=== PATIENT | female | born 1950 | race Caucasian/White ===

== ENCOUNTER 2019-12-10 15:16 | Observation (INO) ==
[2019-12-10] MEDS ORDERED: Nitroglycerin 0.4 MG TAB.SUBL SL PRN (15:45)
[2019-12-10] MEDS ORDERED: Aspirin 81 MG TAB.CHEW PO ONE (15:45)
[2019-12-10 15:55] LABS: Basophils % 0.5 %; Eosinophils # 0.1 K/mcL (0.0-0.6); Eosinophils % 1.5 %; Hemoglobin 13.1 g/dL (11.5-15.4); Immature Granulocytes % 0.2 % (0-4); Lymphocytes # 2.5 K/mcL (0.6-4.6); Lymphocytes % 41.5 %; Mean Corpuscular Hemoglobin 27.4 pg (28.0-33.3); Mean Corpuscular Volume 85.8 fL (83.0-100.0); Mean Platelet Volume 10.1 fL (9.4-12.4); Monocytes # 0.8 K/mcL (0.0-1.3); Monocytes % 12.8 %; Neutrophils # 2.6 K/mcL (1.6-8.9); Platelet Count 275 K/mcL (140-400); Red Blood Count 4.78 M/mcL (3.82-4.97); Red Cell Distribution Width 15.9 % (11.5-14.5); Segmented Neutrophils % 43.5 %
[2019-12-10 16:01] LABS: Prothrombin Time 11.8 Seconds (9.4-12.1)
[2019-12-10 16:04] LABS: Activated Partial Thrombo Time 32.5 Seconds (26.0-36.0)
[2019-12-10 16:16] LABS: BUN/Creatinine Ratio 18 (6-26); Blood Urea Nitrogen 31 mg/dL (8-23); Calcium 9.9 mg/dL (8.6-10.3); Carbon Dioxide 28 mEq/L (23-29); Chloride 104 mEq/L (98-107); Glucose 118 mg/dL (70-105); Osmolality,Calculated 298 (280-300); Potassium 3.9 mEq/L (3.5-5.1); Sodium 140 mEq/L (136-145); Troponin I < 0.03 ng/mL (< 0.04); eGFR For African Americans 35 (> 60); eGFR For Non-African Americans 29 (> 60)
[2019-12-10] MEDS ORDERED: 0.9 % Sodium Chloride 1,000 ML IVC ONE (17:17)
[2019-12-10] MEDS ORDERED: Naloxone 0.4 MG/ML INJ IVP PRN (18:03)
[2019-12-10] MEDS ORDERED: Perflutren Lipid Microsphere 1.3 ML in 0.9 % Sodium Chloride 8.7 ML IVP PRN (18:16)
[2019-12-10] MEDS ORDERED: Acetaminophen 325 MG TABLET PO PRN (18:16)
[2019-12-10] MEDS ORDERED: 0.9 % Sodium Chloride 1,000 ML IVC SCH (18:30)
[2019-12-10] MEDS: Amoxicillin/Clavulanate 500 MG TABLET PO SCH (19:49)
[2019-12-11 03:22] LABS: Basophils % 0.5 %; Eosinophils # 0.2 K/mcL (0.0-0.6); Hematocrit 40.1 % (35.3-44.9); Hemoglobin 12.5 g/dL (11.5-15.4); Immature Granulocytes % 0.4 % (0-4); Lymphocytes # 2.9 K/mcL (0.6-4.6); Lymphocytes % 39.4 %; Mean Corpuscular HGB Conc 31.2 g/dL (31.6-35.5); Mean Corpuscular Hemoglobin 26.2 pg (28.0-33.3); Mean Corpuscular Volume 84.1 fL (83.0-100.0); Mean Platelet Volume 10.1 fL (9.4-12.4); Monocytes # 0.9 K/mcL (0.0-1.3); Monocytes % 12.5 %; Neutrophils # 3.4 K/mcL (1.6-8.9); Platelet Count 242 K/mcL (140-400); Red Blood Count 4.77 M/mcL (3.82-4.97); Red Cell Distribution Width 15.6 % (11.5-14.5); Segmented Neutrophils % 45.2 %; White Blood Count 7.4 K/mcL (4.3-11.1)
[2019-12-11 03:40] LABS: Calcium 9.2 mg/dL (8.6-10.3); Chol/HDL Ratio 3.5 (0-4.9)
[2019-12-11] MEDS ORDERED: Regadenoson 0.4 MG/5 ML SYRINGE IVP ONE (05:55)
[2019-12-11] MEDS ORDERED: Aspirin Enteric Coated 81 MG Tablet PO SCH ×2 (09:00→22:00)
[2019-12-11] MEDS ORDERED: rOPINIRole 0.25 MG TABLET PO PRN (09:31)
[2019-12-11] MEDS ORDERED: *HR* OxyCODONE/APAP 5/325 TABLET PO PRN (09:31)
[2019-12-11] MEDS ORDERED: Gabapentin 300 MG CAPSULE PO SCH (11:00)
[2019-12-11] MEDS ORDERED: amLODIPine 5 MG TABLET PO SCH (11:15)
[2019-12-11] MEDS ORDERED: carvediloL 6.25 MG TABLET PO SCH (11:15)
[2019-12-11] MEDS ORDERED: Furosemide 20 MG TABLET PO SCH (11:15)
[2019-12-11 11:18] VITALS: BP 167/74
[2019-12-11] MEDS: Amoxicillin/Clavulanate 500 MG TABLET PO SCH (12:05)
[2019-12-11] MEDS: hydrOXYzine pamoate 25 MG CAPSULE PO SCH ×2 (12:05→14:29)
[2019-12-11] MEDS ORDERED: Isosorbide MONOnitrate (24 HR) 30 MG TAB.ER.24H PO SCH (13:00)
[2019-12-11] MEDS ORDERED: FENOFIBRATE NANOCRYSTALLIZED 145 MG PO SCH (15:00)
[2019-12-11] MEDS ORDERED: Cyanocobalamin (B-12) 1,000 MCG TABLET PO SCH (15:00)
[2019-12-11] MEDS ORDERED: NON-FORMULARY MEDICATION 1 EACH EACH (Gabapentin [Neurontin] 600 MG) PO SCH (15:00)
[2019-12-11] MEDS ORDERED: Vitamin E 200 UNIT (90MG) CAPSULE PO SCH (15:00)
[2019-12-11] MEDS ORDERED: Loratadine 10 MG TABLET PO SCH (17:00)
[2019-12-11] MEDS ORDERED: tiZANidine 4 MG TABLET PO SCH (22:00)
[2019-12-12] MEDS ORDERED: LINACLOTIDE 72 MCG PO SCH (09:00)
[2019-12-13] MEDS ORDERED: ESTRADIOL APPL VG SCH (09:00)
== END 2019-12-11 17:41 | disposition home or self-care (01) ==
LOC: 3BNU 15:16 → EMEROOARM 15:16 → 3BNU 18:26
PROVIDERS: ADMIT Internal Medicine; ATTEND Internal Medicine

== ENCOUNTER 2020-02-25 10:14 | Observation (INO) ==
[2020-02-25 10:48] LABS: Basophils % 0.6 %; Eosinophils # 0.1 K/mcL (0.0-0.6); Eosinophils % 1.9 %; Hematocrit 41.6 % (35.3-44.9); Hemoglobin 13.2 g/dL (11.5-15.4); Immature Granulocytes % 0.3 % (0-4); Lymphocytes % 31.6 %; Mean Corpuscular HGB Conc 31.7 g/dL (31.6-35.5); Mean Corpuscular Hemoglobin 27.4 pg (28.0-33.3); Mean Corpuscular Volume 86.5 fL (83.0-100.0); Mean Platelet Volume 10.4 fL (9.4-12.4); Monocytes # 0.7 K/mcL (0.0-1.3); Monocytes % 11.2 %; Neutrophils # 3.5 K/mcL (1.6-8.9); Platelet Count 205 K/mcL (140-400); Red Blood Count 4.81 M/mcL (3.82-4.97); Red Cell Distribution Width 14.7 % (11.5-14.5); Segmented Neutrophils % 54.4 %; White Blood Count 6.4 K/mcL (4.3-11.1)
[2020-02-25 10:57] LABS: INR 1.1; Prothrombin Time 12.7 Seconds (9.4-12.1)
[2020-02-25 11:00] LABS: Activated Partial Thrombo Time 29.9 Seconds (26.0-36.0)
[2020-02-25 11:02] LABS: BUN/Creatinine Ratio 13 (6-26); Blood Urea Nitrogen 11 mg/dL (8-23); Calcium 9.2 mg/dL (8.6-10.3); Carbon Dioxide 25 mEq/L (23-29); Chloride 108 mEq/L (98-107); Glucose 98 mg/dL (70-105); Osmolality,Calculated 289 (280-300); Sodium 140 mEq/L (136-145); Troponin I < 0.03 ng/mL (< 0.04); eGFR For African Americans > 60 (> 60); eGFR For Non-African Americans > 60 (> 60)
[2020-02-25] MEDS ORDERED: Isovue-370 500 ML BOTTLE IVP ONE (11:09)
[2020-02-25] MEDS ORDERED: Naloxone 0.4 MG/ML INJ IVP PRN (12:58)
[2020-02-25] MEDS ORDERED: Nitroglycerin 0.4 MG TAB.SUBL SL PRN (12:59)
[2020-02-25] MEDS ORDERED: rOPINIRole 0.25 MG TABLET PO PRN (12:59)
[2020-02-25] MEDS ORDERED: *HR* Dextrose 50 % in Water (Vial) 50 ML VIAL IVP PRN (13:02)
[2020-02-25] MEDS ORDERED: Dextrose Gel 15 GM/37.5 ML TUBE PO PRN ×2 (13:02)
[2020-02-25] MEDS ORDERED: D5% in Water 1,000 ML IVC PRN (13:02)
[2020-02-25] MEDS ORDERED: GI Cocktail 40 ML EACH PO ONE ×2 (14:09→16:00)
[2020-02-25] MEDS: hydrOXYzine pamoate 25 MG CAPSULE PO SCH ×3 (14:23→22:24)
[2020-02-25] MEDS: Isosorbide MONOnitrate (24 HR) 30 MG TAB.ER.24H PO SCH (14:35)
[2020-02-25] MEDS ORDERED: Ondansetron 4 MG/2 ML VIAL IVP PRN (14:48)
[2020-02-25] MEDS: Insulin LISPRO 300 UNITS/3 ML VIAL SQ SCH ×2 (14:54→16:20)
[2020-02-25] MEDS ORDERED: Cyanocobalamin (B-12) 1,000 MCG TABLET PO SCH (15:00)
[2020-02-25] MEDS ORDERED: Vitamin E 200 UNIT (90MG) CAPSULE PO SCH (15:00)
[2020-02-25] MEDS ORDERED: tiZANidine 4 MG TABLET PO PRN (15:00)
[2020-02-25] MEDS ORDERED: Fenofibrate 54 MG TABLET PO SCH (15:00)
[2020-02-25] MEDS: Pantoprazole 40 MG VIAL IVP SCH ×2 (15:16→17:20)
[2020-02-25] MEDS: *HR* HYDROcodone/Acet 5/325 mg TABLET PO PRN (16:39)
[2020-02-25] MEDS ORDERED: Loratadine 10 MG TABLET PO SCH (17:00)
[2020-02-25] MEDS: carvediloL 6.25 MG TABLET PO SCH (17:19)
[2020-02-25] MEDS: Gabapentin 400 MG CAPSULE PO SCH ×2 (17:19→22:25)
[2020-02-25] MEDS ORDERED: Insulin LISPRO 300 UNITS/3 ML VIAL SQ SCH (21:00)
[2020-02-25] MEDS ORDERED: Aspirin Enteric Coated 81 MG Tablet PO SCH (22:00)
[2020-02-26] MEDS: Pantoprazole 40 MG VIAL IVP SCH (06:20)
[2020-02-26 06:35] LABS: BUN/Creatinine Ratio 12 (6-26); Blood Urea Nitrogen 10 mg/dL (8-23); Calcium 9.4 mg/dL (8.6-10.3); Carbon Dioxide 26 mEq/L (23-29); Chloride 107 mEq/L (98-107); Glucose 96 mg/dL (70-105); Magnesium 1.9 mg/dL (1.6-2.6); Osmolality,Calculated 287 (280-300); Phosphorous 3.2 mg/dL (2.7-4.5); Potassium 3.6 mEq/L (3.5-5.1); Sodium 139 mEq/L (136-145); eGFR For African Americans > 60 (> 60); eGFR For Non-African Americans > 60 (> 60)
[2020-02-26] MEDS: Insulin LISPRO 300 UNITS/3 ML VIAL SQ SCH ×2 (08:35→12:43)
[2020-02-26] MEDS: hydrOXYzine pamoate 25 MG CAPSULE PO SCH ×2 (08:36→12:48)
[2020-02-26] MEDS: carvediloL 6.25 MG TABLET PO SCH (08:36)
[2020-02-26] MEDS: Gabapentin 400 MG CAPSULE PO SCH (08:36)
[2020-02-26] MEDS ORDERED: Albuterol 2.5 MG/3 ML NEBULIZER IH PRN (08:37)
[2020-02-26] MEDS ORDERED: Prenatal Vit/FA 1 EACH TABLET PO SCH (09:00)
[2020-02-26] MEDS ORDERED: amLODIPine 5 MG TABLET PO SCH (09:00)
[2020-02-26] MEDS ORDERED: Furosemide 20 MG TABLET PO SCH (09:00)
[2020-02-26 11:17] VITALS: BP 129/62
[2020-02-26] MEDS: Isosorbide MONOnitrate (24 HR) 30 MG TAB.ER.24H PO SCH (12:48)
[2020-02-26] MEDS: *HR* HYDROcodone/Acet 5/325 mg TABLET PO PRN (14:44)
== END 2020-02-26 15:54 | disposition home or self-care (01) ==
LOC: EMEROOARM 10:14 → 3BNU 10:14 → SUATTDRO 13:27 → 3ANU 14:05
PROVIDERS: ADMIT Internal Medicine; ATTEND Internal Medicine

== ENCOUNTER 2021-01-08 14:11 | Inpatient (IN) ==
[2021-01-08] MEDS ORDERED: Isovue-370 500 ML BOTTLE IVP ONE (18:57)
[2021-01-08] MEDS ORDERED: Aspirin 325 MG TABLET PO STA (18:59)
[2021-01-08 19:40] LABS: Basophils % 0.3 %; Eosinophils # 0.1 K/mcL (0.0-0.6); Eosinophils % 1.1 %; Hematocrit 42.2 % (35.3-44.9); Hemoglobin 13.5 g/dL (11.5-15.4); Immature Granulocytes % 0.5 % (0-4); Lymphocytes # 2.9 K/mcL (0.6-4.6); Lymphocytes % 36.6 %; Mean Corpuscular Hemoglobin 28.4 pg (28.0-33.3); Mean Corpuscular Volume 88.8 fL (83.0-100.0); Mean Platelet Volume 10.7 fL (9.4-12.4); Monocytes # 0.9 K/mcL (0.0-1.3); Monocytes % 11.6 %; Neutrophils # 3.9 K/mcL (1.6-8.9); Platelet Count 180 K/mcL (140-400); Red Blood Count 4.75 M/mcL (3.82-4.97); Red Cell Distribution Width 15.5 % (11.5-14.5); Segmented Neutrophils % 49.9 %; White Blood Count 7.9 K/mcL (4.3-11.1)
[2021-01-08 20:01] LABS: Alanine Aminotransferase 19 Units/L (7-52); Albumin/Globulin Ratio 1.2 (1.1-2.2); Alkaline Phosphatase 62 Units/L (34-104); Aspartate Amino Transferase 21 Units/L (13-39); BUN/Creatinine Ratio 11 (6-26); Bilirubin,Direct 0.1 mg/dL (0.0-0.2); Bilirubin,Indirect 0.3 mg/dL (0.0-1.0); Bilirubin,Total 0.4 mg/dL (0.3-1.0); Blood Urea Nitrogen 15 mg/dL (8-23); Calcium 9.5 mg/dL (8.6-10.3); Carbon Dioxide 27 mEq/L (23-29); Chloride 102 mEq/L (98-107); Globulin 3.4 g/dL (2.4-3.5); Glucose 132 mg/dL (70-105); Lipase 25 Units/L (11-82); Osmolality,Calculated 287 (280-300); Potassium 3.6 mEq/L (3.5-5.1); Sodium 137 mEq/L (136-145); Total Protein 7.4 g/dL (6.4-8.9); Troponin I < 0.03 ng/mL (< 0.04); eGFR For African Americans 46 (> 60); eGFR For Non-African Americans 38 (> 60)
[2021-01-08] MEDS ORDERED: Aspirin 81 MG TAB.CHEW ONE (20:59)
[2021-01-08] MEDS ORDERED: Aspirin 81 MG TAB.CHEW PO ONE (21:01)
[2021-01-08] MEDS ORDERED: *HR* Heparin 5,000 UNIT/ML VIAL IVP PRN ×2 (21:04)
[2021-01-08] MEDS ORDERED: *HR* Heparin 5,000 UNIT/ML VIAL IVP ONE (21:04)
[2021-01-08] MEDS ORDERED: Melatonin 3 MG TABLET PO PRN (22:17)
[2021-01-08] MEDS ORDERED: Naloxone 0.4 MG/ML INJ IVP PRN (22:17)
[2021-01-08] MEDS ORDERED: D5% in Water 1,000 ML IVC PRN (22:24)
[2021-01-08] MEDS ORDERED: *HR* Dextrose 50 % in Water (Syg) 50 ML SYRINGE IVP PRN (22:24)
[2021-01-08] MEDS ORDERED: Dextrose Gel 15 GM/37.5 ML TUBE PO PRN ×2 (22:24)
[2021-01-08] MEDS ORDERED: 0.9 % Sodium Chloride 1,000 ML IVC SCH (22:45)
[2021-01-08 22:46] LABS: INR 1.2; Prothrombin Time 13.6 Seconds (9.4-12.1)
[2021-01-09] MEDS: Heparin 25,000UNIT/250ML 1/2NS 25,000 UNIT/250 ML IV.SOLN IVC SCH ×2 (00:06→23:56)
[2021-01-09 02:34] LABS: Calcium 8.8 mg/dL (8.6-10.3); Potassium 3.6 mEq/L (3.5-5.1)
[2021-01-09 02:54] LABS: Hematocrit 38.8 % (35.3-44.9); Hemoglobin 12.1 g/dL (11.5-15.4); Mean Corpuscular HGB Conc 31.2 g/dL (31.6-35.5); Mean Corpuscular Volume 89.8 fL (83.0-100.0); Mean Platelet Volume 11.3 fL (9.4-12.4); Platelet Count 183 K/mcL (140-400); Red Blood Count 4.32 M/mcL (3.82-4.97); Red Cell Distribution Width 15.5 % (11.5-14.5); White Blood Count 8.6 K/mcL (4.3-11.1)
[2021-01-09] MEDS: Vancomycin Oral Soln 125 MG/2.5 ML UDC PO SCH ×5 (02:56→23:21)
[2021-01-09] MEDS: *HR* OxyCODONE/APAP 5/325 TABLET PO PRN (02:56)
[2021-01-09] MEDS: Insulin LISPRO 300 UNITS/3 ML VIAL SUBQ SCH ×4 (07:13→23:34)
[2021-01-09] MEDS: Gabapentin 400 MG CAPSULE PO SCH ×3 (07:49→23:21)
[2021-01-09] MEDS: PARoxetine 10 MG TABLET PO SCH (07:49)
[2021-01-09 17:17] LABS: Bilirubin,Urine Negative (Negative); Blood,Urine Negative (Negative); Clarity,Urine Clear (Clear); Color,Urine Light-Yellow (Yellow); Glucose,Urine (UA) Normal (Normal); Ketones,Urine Negative (Negative); Leukocyte Esterase,Urine Negative (Negative); Nitrite,Urine Negative (Negative); PH,Urine 5.5 pH Units (5.0-8.0); Protein,Urine Negative (Neg-Trace); Specific Gravity,Urine 1.021 (1.010-1.025); Urobilinogen,Urine Normal (Normal)
[2021-01-09] MEDS: traZODone 50 MG TABLET PO SCH (23:21)
[2021-01-10 05:17] LABS: Basophils % 0.7 %; Eosinophils # 0.2 K/mcL (0.0-0.6); Eosinophils % 3.4 %; Hematocrit 38.4 % (35.3-44.9); Hemoglobin 11.9 g/dL (11.5-15.4); Immature Granulocytes % 0.3 % (0-4); Lymphocytes # 2.4 K/mcL (0.6-4.6); Lymphocytes % 40.4 %; Mean Corpuscular Hemoglobin 27.9 pg (28.0-33.3); Mean Corpuscular Volume 89.9 fL (83.0-100.0); Monocytes # 0.7 K/mcL (0.0-1.3); Monocytes % 11.1 %; Neutrophils # 2.6 K/mcL (1.6-8.9); Platelet Count 154 K/mcL (140-400); Red Blood Count 4.27 M/mcL (3.82-4.97); Red Cell Distribution Width 15.7 % (11.5-14.5); Segmented Neutrophils % 44.1 %; White Blood Count 5.9 K/mcL (4.3-11.1)
[2021-01-10 05:46] LABS: BUN/Creatinine Ratio 15 (6-26); Blood Urea Nitrogen 13 mg/dL (8-23); Calcium 8.8 mg/dL (8.6-10.3); Carbon Dioxide 26 mEq/L (23-29); Chloride 108 mEq/L (98-107); Glucose 152 mg/dL (70-105); Magnesium 1.9 mg/dL (1.6-2.6); Osmolality,Calculated 291 (280-300); Phosphorous 2.9 mg/dL (2.7-4.5); Potassium 4.4 mEq/L (3.5-5.1); Sodium 139 mEq/L (136-145); eGFR For African Americans > 60 (> 60); eGFR For Non-African Americans > 60 (> 60)
[2021-01-10] MEDS: Insulin LISPRO 300 UNITS/3 ML VIAL SUBQ SCH ×4 (08:10→22:24)
[2021-01-10] MEDS: Gabapentin 400 MG CAPSULE PO SCH ×3 (08:48→22:23)
[2021-01-10] MEDS: PARoxetine 10 MG TABLET PO SCH (08:48)
[2021-01-10] MEDS: Vancomycin Oral Soln 125 MG/2.5 ML UDC PO SCH ×4 (08:48→22:24)
[2021-01-10] MEDS: *HR* OxyCODONE/APAP 5/325 TABLET PO PRN ×2 (09:07→22:23)
[2021-01-10] MEDS ORDERED: Phenylephrine Nasal 0.5% 15 ML BOTTLE NS ONE (13:41)
[2021-01-10] MEDS: traZODone 50 MG TABLET PO SCH (22:23)
[2021-01-10] MEDS: Apixaban 5 MG TABLET PO SCH (22:24)
[2021-01-11 04:08] LABS: Basophils % 0.5 %; Eosinophils # 0.2 K/mcL (0.0-0.6); Eosinophils % 2.6 %; Hematocrit 33.4 % (35.3-44.9); Hemoglobin 10.7 g/dL (11.5-15.4); Immature Granulocytes % 0.8 % (0-4); Lymphocytes # 2.5 K/mcL (0.6-4.6); Lymphocytes % 39.4 %; Mean Corpuscular Hemoglobin 28.7 pg (28.0-33.3); Mean Corpuscular Volume 89.5 fL (83.0-100.0); Mean Platelet Volume 11.1 fL (9.4-12.4); Monocytes # 0.6 K/mcL (0.0-1.3); Monocytes % 10.1 %; Neutrophils # 2.9 K/mcL (1.6-8.9); Platelet Count 135 K/mcL (140-400); Red Blood Count 3.73 M/mcL (3.82-4.97); Red Cell Distribution Width 15.7 % (11.5-14.5); Segmented Neutrophils % 46.6 %; White Blood Count 6.2 K/mcL (4.3-11.1)
[2021-01-11 04:30] LABS: BUN/Creatinine Ratio 19 (6-26); Blood Urea Nitrogen 16 mg/dL (8-23); Calcium 8.5 mg/dL (8.6-10.3); Carbon Dioxide 30 mEq/L (23-29); Chloride 104 mEq/L (98-107); Glucose 288 mg/dL (70-105); Magnesium 1.8 mg/dL (1.6-2.6); Osmolality,Calculated 298 (280-300); Potassium 4.3 mEq/L (3.5-5.1); Sodium 138 mEq/L (136-145); eGFR For African Americans > 60 (> 60); eGFR For Non-African Americans > 60 (> 60)
[2021-01-11 07:40] VITALS: BP 121/68; PULSE 65; TEMP 98.3; O2SAT 90
[2021-01-11] MEDS: Insulin LISPRO 300 UNITS/3 ML VIAL SUBQ SCH (07:56)
[2021-01-11] MEDS: Apixaban 5 MG TABLET PO SCH (07:59)
[2021-01-11] MEDS: Gabapentin 400 MG CAPSULE PO SCH (07:59)
[2021-01-11] MEDS: PARoxetine 10 MG TABLET PO SCH (07:59)
[2021-01-11] MEDS: Vancomycin Oral Soln 125 MG/2.5 ML UDC PO SCH (07:59)
== END 2021-01-11 10:45 | disposition home or self-care (01) | DRG 300 ==
LOC: EMEROOARM 14:11 → 3BNU 14:11
PROVIDERS: ADMIT Internal Medicine; ATTEND Internal Medicine